=== PATIENT | female | born 1970 | race Caucasian/White ===

== ENCOUNTER → 2016-12-08 10:31 | Outpatient (CLI) | payer MEDICAID | END | disposition home or self-care (01) | LOC: D.CT 11-21 10:30 | DX: R16.1 Splenomegaly, not elsewhere classified (principal); R91.1 Solitary pulmonary nodule ==

== ENCOUNTER 2017-02-09 10:13 | Emergency (ER) | payer MEDICAID ==
[2017-02-09 11:27] LABS: BASOPHILS 0.3 % (0-2); EOSINOPHILS 1.3 % (0-7); HEMATOCRIT 46.7 % (36.0-48.0); HEMOGLOBIN 15.1 g/dL (12-16); IMMATURE GRANULOCYTES 0.2 % (0-5); LYMPHOCYTES 35.9 % (15-50); MCH 30.4 pg (26.0-34.0); MCHC 32.3 g/dL (31.0-37.0); MEAN PLATELET VOLUME 10.8 fL (7.4-10.4); MONOCYTES 5.4 % (2-11); NEUTROPHILS 56.9 % (40-80); PLATELET COUNT 212 10x3/uL (130-400); RBC 4.97 10x6/uL (4.00-5.40); WBC 6.2 10x3/uL (4.8-10.8)
[2017-02-09 11:36] LABS: APPEARANCE CLEAR (CLEAR); BILIRUBIN NEGATIVE (NEGATIVE); COLOR STRAW (YELLOW); GLUCOSE NEGATIVE (NEGATIVE); KETONE NEGATIVE (NEGATIVE); LEUKOCYTE ESTERASE NEGATIVE (NEGATIVE); NITRITE NEGATIVE (NEGATIVE); PROTEIN NEGATIVE (NEGATIVE); UROBILINOGEN NORMAL (NORMAL)
[2017-02-09 11:42] LABS: ALBUMIN 3.5 g/dL (3.4-5.0); ALKALINE PHOSPHATASE 106 U/L (46-116); ALT (SGPT) 45 U/L (10-68); BILIRUBIN - TOTAL 0.22 mg/dL (0.2-1.3); CALC OSMOLALITY 275 mosm/kg (275-300); CALCIUM 9.3 mg/dL (8.5-10.1); CARBON DIOXIDE 27.8 mmol/L (21.0-32.0); CHLORIDE - SERUM 103 mmol/L (98-107); CREATININE - SERUM 0.8 mg/dL (0.6-1.3); GLUCOSE 87 mg/dL (74-106); POTASSIUM - SERUM 4.4 mmol/L (3.5-5.1); SODIUM 139 mmol/L (136-145); UREA NITROGEN 11 mg/dL (7-18); eGFR NON AFRICAN AMERICAN 82 mL/min (90-120)
== END 2017-02-09 14:02 | disposition home or self-care (01) ==
LOC: D.ER 10:13
PROVIDERS: Nurse Practitioner Family
DX: G43.909 Migraine, unspecified, not intractable, without status migrainosus (principal); F17.200 Nicotine dependence, unspecified, uncomplicated

== ENCOUNTER → 2017-02-26 18:55 | Outpatient (CLI) | payer MEDICAID | END | disposition home or self-care (01) | LOC: D.LABREF 18:55 | DX: R91.1 Solitary pulmonary nodule (principal) ==

== ENCOUNTER → 2017-03-03 07:51 | Outpatient (CLI) | payer MEDICAID | END | disposition home or self-care (01) | LOC: D.RT 07:51 | DX: R06.00 Dyspnea, unspecified (principal) ==

== ENCOUNTER 2017-12-24 17:13 | Emergency (ER) | payer MEDICAID | END 2017-12-24 19:15 | disposition home or self-care (01) | LOC: D.ER 17:13 | DX: S61.215A Laceration without foreign body of left ring finger without damage to nail, initial encounter (principal); W26.9XXA Contact with unspecified sharp object(s), initial encounter; Y93.89 Activity, other specified; Y92.019 Unspecified place in single-family (private) house as the place of occurrence of the external cause; F17.200 Nicotine dependence, unspecified, uncomplicated ==

== ENCOUNTER 2018-05-15 09:35 | Emergency (ER) | payer MEDICAID ==
[~2018-05-15] VITALS: Ht 175.3 cm; Wt 102.3 kg
[2018-05-15 09:40] VITALS: Ht 175.3 cm; Wt 102.3 kg
[2018-05-15] MEDS ORDERED: BUTALB-APAP-CA1 EACH PO (09:44)
[2018-05-15] MEDS ORDERED: ZOFRAN4 MG PO (09:45)
[2018-05-15] MEDS ORDERED: BACTRIM 400-801 TAB PO (09:46)
[2018-05-15] MEDS ORDERED: ZANAFLEX2 M1 PO (09:47)
[2018-05-15] MEDS ORDERED: IMITREX100 MG PO (09:47)
[2018-05-15] MEDS ORDERED: ULTRAM50 MG PO ×2 (09:47→13:39)
[2018-05-15 10:16] LABS: APPEARANCE CLEAR (CLEAR); BILIRUBIN NEGATIVE (NEGATIVE); COLOR YELLOW (YELLOW); GLUCOSE NEGATIVE (NEGATIVE); KETONE NEGATIVE (NEGATIVE); NITRITE NEGATIVE (NEGATIVE); PROTEIN NEGATIVE (NEGATIVE); UROBILINOGEN NORMAL (NORMAL)
[2018-05-15 10:28] LABS: BASOPHILS 0.2 % (0-2); EOSINOPHILS 0.3 % (0-7); HEMATOCRIT 45.2 % (36.0-48.0); HEMOGLOBIN 15.3 g/dL (12-16); IMMATURE GRANULOCYTES 0.2 % (0-5); LYMPHOCYTES 27.6 % (15-50); MCH 30.5 pg (26.0-34.0); MCHC 33.8 g/dL (31.0-37.0); MEAN PLATELET VOLUME 10.5 fL (7.4-10.4); MONOCYTES 4.1 % (2-11); NEUTROPHILS 67.6 % (40-80); PLATELET COUNT 223 10x3/uL (130-400); RBC 5.02 10x6/uL (4.00-5.40); WBC 8.8 10x3/uL (4.8-10.8)
[2018-05-15 10:53] LABS: ALBUMIN 3.9 g/dL (3.4-5.0); ANION GAP 14.7 mmol/L (8-16); BILIRUBIN - TOTAL 0.43 mg/dL (0.2-1.3); CALCIUM 9.1 mg/dL (8.5-10.1); CARBON DIOXIDE 26.5 mmol/L (21.0-32.0); POTASSIUM - SERUM 4.2 mmol/L (3.5-5.1); PROTEIN - SERUM 6.9 g/dL (6.4-8.2)
[2018-05-15] MEDS ORDERED: MACROBID100 MG PO (13:39)
[2018-05-15] MEDS ORDERED: ZOFRAN8 MG PO (13:39)
[2018-05-15 14:06] VITALS: BP 149/81
== END 2018-05-15 14:06 | disposition home or self-care (01) ==
LOC: D.ER 09:35
PROVIDERS: Emergency Medicine
DX: R10.32 Left lower quadrant pain (principal); N39.0 Urinary tract infection, site not specified; R20.2 Paresthesia of skin; F17.200 Nicotine dependence, unspecified, uncomplicated

== ENCOUNTER 2020-10-05 08:50 | Day surgery (SDC) | payer BC ==
[2020-10-03 11:06] LABS: BASOPHILS 0.2 % (0-2); HEMATOCRIT 48.9 % (36.0-48.0); HEMOGLOBIN 16.3 g/dL (12-16); IMMATURE GRANULOCYTES 0.2 % (0-5); LYMPHOCYTE ABS# 2.69 10x3/uL (1.18-3.74); LYMPHOCYTES 28.8 % (15-50); MCH 30.2 pg (26.0-34.0); MCHC 33.3 g/dL (31.0-37.0); MCV 90.6 fL (80.0-100.0); MEAN PLATELET VOLUME 10.2 fL (7.4-10.4); NEUTROPHIL ABS# 5.86 10x3/uL (1.56-6.13); NEUTROPHILS 62.8 % (40-80); RDW 12.8 % (11.5-14.5); WBC 9.3 10x3/uL (4.8-10.8)
[2020-10-03 11:14] LABS: PLATELET COUNT 283 10x3/uL (130-400)
[2020-10-03 11:23] LABS: SARS-CoV-2 ANTIGEN NEGATIVE- SARS-COV-2 (NEGATIVE)
[2020-10-03 11:25] LABS: ANION GAP 13.5 mmol/L (8-16); CALCIUM 9.7 mg/dL (8.5-10.1); CARBON DIOXIDE 28.4 mmol/L (21.0-32.0); CREATININE - SERUM 0.9 mg/dL (0.6-1.3); POTASSIUM - SERUM 3.9 mmol/L (3.5-5.1)
[~2020-10-05] VITALS: Ht 175.3 cm; Wt 100.2 kg
[~2020-10-05 08:50] MED LIST: BACTRIM 400-801 TAB PO; BUTALB-APAP-CA1 EACH PO; CYCLOBENZAPRINE10 MG PO; IMITREX100 MG PO; LIPITOR20 MG PO; LISINOPRIL-HCT1 EAC7 PO; MACROBID100 MG PO; PLAVIX75 MG PO; TOPAMAX50 MG PO; ULTRAM50 MG PO; ZANAFLEX2 M1 PO; ZOFRAN4 MG PO; ZOFRAN8 MG PO
[2020-10-05 09:29] VITALS: BP 128/80; Ht 175.3 cm; Wt 100.2 kg
--- NOTE | 2020-10-05 14:03 | NUR ---
1350 IV REMOVED AND INSTRUCTIONS GIVEN. PT VOIDED. MEDICATED X 1 PAIN
--- NOTE | 2020-10-12 16:43 | OP ---
PATIENT NAME: JOSELO FERRARI MEDICAL RECORD: [id number] :74 LOCATION:D.OPS ADMISSION DATE: SURGEON: MICHAEL SCOTT MD DATE OF OPERATION: 10/05/2020 PREOPERATIVE DIAGNOSIS: Vulvar condyloma. POSTOPERATIVE DIAGNOSIS: Vulvar condyloma. PROCEDURE: Laser ablation of vulvar condyloma. SURGEON: Michael Scott IV FLUIDS: Per anesthesia record. ESTIMATED BLOOD LOSS: None. SPECIMENS: None. COMPLICATIONS: None apparent. FINDINGS: Approximately 2-2.5 cm flat condyloma involving the posterior fourchette and vestibule of the vagina. DESCRIPTION OF PROCEDURE: The patient was taken to the operating room where general anesthesia was achieved without difficulty. The patient was then prepped and draped in normal sterile fashion. A wet draping was used around the vagina where the site of laser operation would be performed. The carbon dioxide laser was then used to ablate the epithelium of the said condyloma. When the dermis was exposed, all areas of the condyloma were found to be removed with good hemostasis noted. The patient tolerated the procedure well and was transferred to postanesthesia recovery stable without incident. 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
== END 2020-10-05 14:00 | disposition home or self-care (01) ==
LOC: D.OPS 08:50
PROVIDERS: Anesthesiology; ATTEND Obstetrics & Gynecology
DX: A63.0 Anogenital (venereal) warts (principal)